=== PATIENT | male | born 1995 | race Caucasian/White ===

== ENCOUNTER 2023-07-22 10:37 | Emergency (ER) | payer OTHER ==
[2023-07-22 10:48] VITALS: BP 138/77; O2SAT 98
[2023-07-22] MEDS ORDERED: TETANUS/DIPHTHERIA/PERTUSSIS 0.5 ML SYRINGE IM ONE (12:00)
[2023-07-22] MEDS ORDERED: BACITRACIN ZINC OINT 1 PACKET TOP STA (12:00)
--- NOTE | 2023-07-22 12:16 | ED Physician Documentation ---
History of Present Illness - Stated complaint Stated Complaint: LT HAND LAC - Chief complaint Chief Complaint: Laceration - Additonal information Additional information: He cut his left hand while using a knife in a garage. Tetanus is up-to-date. [id number]. Review of Systems Skin: reports: Laceration (s) PD PAST MEDICAL HISTORY - Past Medical History Past Medical History: No - Past Surgical History Past Surgical History: No - Present Medications Home Medications: Ambulatory Orders Medication Instructions Recorded Confirmed No Known Home Medications 07/22/23 07/22/23 - Allergies Allergies/Adverse Reactions: Allergies Allergy/AdvReac Type Severity Reaction Status Date / Time No Known Drug Allergies Allergy Verified 07/22/23 10:44 - Social History Does the pt smoke?: No Smoking Status: Never smoker PD ED PE EXPANDED - Extremities Extremities: Right hand (3 cm laceration just below and medial to the MCP joint of the index finger dorsum right hand. Neurovascularly intact. Normal flexion extension against resistance.) Results - Vitals Vitals: Vital Signs - 24 hr 07/22/23 10:42 Temperature 36.7 C Heart Rate 56 L Respiratory 16 Rate Blood Pressure 138/77 H O2 Saturation 98 Oxygen O2 Source Room air Procedures - Laceration (location) right hand Length in cm: 3 Wound type: Linear, Superficial Neurovascular status: Sensory intact, Motor intact Tendon involvement: Tendon intact Anesthesia: Lidocaine 1% Wound preparation: Irrigated copiously NS Skin layer closure: Interrupted, Size #-0 - enter number (4), Sutures - enter # (4) Other: Patient tolerated well, No complications, Neurovascular intact, Dressing applied, Tetanus UTD PD Medical Decision Making - ED course Complexity details: d/w patient ED course: Superficial left hand laceration on the dorsum right hand just medial and below the MCP joint of the index finger. Closed with 4 sutures. Tetanus is up-to-d ate. Routine wound care in the usual emergent return precautions were discussed for concerns of infection. Departure - Departure Disposition: 01 Home, Self Care Clinical Impression: Laceration of left hand Qualifiers: Encounter type: initial encounter Foreign body presence: without foreign body Qualified Code(s): S61.412A - Laceration without foreign body of left hand, initial encounter Condition: Stable Record reviewed to determine appropriate education?: Yes Instructions: ED Laceration Hand Comments: Your suture(s) should be removed in 7 to 10 days. In 24 hours you may remove the dressing wash gently with warm soap and water, apply any antibiotic ointment and a simple bandage. Your tetanus is up-to-date. Please attempt to keep your wound clean and dry. Do not submerge it in dirty dishwater or bath water. Return to the emergency department if you have any concerns of infection such as redness, fevers milky drainage increased pain.
== END 2023-07-22 12:28 | disposition home or self-care (01) ==
LOC: ED 10:37
DX: S61.412A Laceration without foreign body of left hand, initial encounter (principal); W26.0XXA Contact with knife, initial encounter; Y92.008 Other place in unspecified non-institutional (private) residence as the place of occurrence of the external cause
CPT/HCPCS: 12002; 99282; A9270